=== PATIENT | female | born 1955 | race Caucasian/White ===

== ENCOUNTER 2016-09-19 10:41 | Emergency (ER) | payer BC ==
[~2016-09-19] VITALS: Ht 157.4 cm; Wt 54.4 kg
[~2016-09-19 10:41] MED LIST: ACTIGALL300 MG PO; DEXILANT30 MG PO; FLUOXETINE HYDR20 M1 PO; HYDROCODONE BIT1 T11 PO; LIBRIUM5 MG PO; NAPROSYN500 MG PO; NATURE'S BLEND F1 MG PO; NORVASC10 MG PO; NORVASC2.5 MG PO; Oxycodone/Apap1 TA1 PO; PLAQUENIL200 MG PO; SUBOXONE 12 MG1 EACH SL; THERA TABS1 TAB PO; TRAMADOL HCL50 MG PO; VICODIN ES 7501 TAB PO; VISTARIL25 MG PO; VITAMIN B-11 TAB PO; XANAX0.25 MG PO; ZANTAC 300300 MG PO
[2016-09-19] MEDS ORDERED: ZOLOFT25 MG PO (10:47)
== END 2016-09-19 12:09 | disposition home or self-care (01) ==
LOC: ED 10:41
DX: M19.90 Unspecified osteoarthritis, unspecified site (principal); M54.12 Radiculopathy, cervical region; F17.200 Nicotine dependence, unspecified, uncomplicated; Z79.899 Other long term (current) drug therapy

== ENCOUNTER 2017-05-07 22:17 | Inpatient (IN) | payer BC ==
[~2017-05-07] VITALS: Ht 157.5 cm; Wt 54.6 kg
--- NOTE | ~2017-05-07 | PR ---
[place], [place] PROGRESS NOTE NAME: LAUREN COLLIER UNIT #: [id number] ROOM: [facility] DOCTOR: BREE OVALLE MD,MEGHANA BIRTHDATE: [birth year] DOS: 05/10/2017 SUBJECTIVE: The patient was noted comfortable at this time, sitting on the bed. Denies any symptoms of shortness of breath. The patient has no symptoms of coughing or sputum expectoration or any chest pain. OBJECTIVE: VITAL SIGNS: For the patient shows normal temperature, respirations 16, heart rate 85, blood pressure 91/53. Pulse oxygen saturation was noted on 3 liters oxygen of 92% saturation. HEENT: Examination shows no new change. NECK: Supple. CARDIOVASCULAR: S1, S2 is audible. LUNGS: Basilar crackles were noted with decreased breath sounds. ABDOMEN: Soft, nontender. EXTREMITIES: Without any acute edema. LABORATORY DATA: CMP today, normal BUN and creatinine. CBC today, hemoglobin 10.0. Normal WBC count. The platelet count were normal as well. IMPRESSION: Stable respiratory status was noted at this time with improving acute respiratory failure progressively. Use of BiPAP was noted quite limited for the patient in the last 24 hours. PLAN OF MANAGEMENT: Titrate oxygen supplementation for this patient to maintain saturation of oxygen 92% greater. Discontinue the BiPAP because of limited use at this time and overall improvement in the respiratory status. Continue to maximize the cardiac management. MEGHANA GIRON MD CM:PNTRANS [id number] MEGHANA OVALLE MD 05/11/17 0316 interface
--- NOTE | ~2017-05-07 | CON ---
[place], [place] REPORT OF CONSULTATION NAME: LAUREN COLLIER UNIT #: [id number] ROOM: [place] [address] DOCTOR: MEGHANA FISCHER MD BIRTHDATE: [birth year] DOS: 05/08/2017 REASON FOR CONSULTATION: Assess the patient's current acute respiratory failure, possibly to aspiration pneumonia. HISTORY OF PRESENT ILLNESS: A 61-year-old white female patient with dependence on alcohol and narcotics medication. The patient has been admitted to the hospital under the care of hospitalist service on 05/08/2017, this morning. The patient arrived in the Emergency Room last night at 23:10. She has reported having symptoms of increased shortness of breath, heart racing, palpitation, general weakness and fatigue. The patient thought that she has a panic attack. She had been known with history of alcohol dependence and drank about a bottle of vodka. The patient reported symptoms of nonspecific chest pain as well. Denies symptoms of hemoptysis. She had reported recent symptoms of cough and sputum expectoration, also experiencing chills without any fever at home and shakes. She denies symptoms of any chest trauma. REVIEW OF SYSTEMS: CONSTITUTIONAL: Fatigue and tiredness reported. Denies symptoms of fever or chills. EYES: Denies any burning, redness, or tenderness. EARS, NOSE, THROAT SYMPTOMS: Denies sore throat, hoarseness, otalgia, postnasal drainage or epistaxis. CARDIOVASCULAR SYSTEM: Denies anginal pain, edema or pain of the lower extremities. GASTROINTESTINAL: Denies dysphagia, nausea, vomiting, diarrhea, abdominal pain, hematemesis, melena, hematochezia or with recent symptoms of dysphagia or choking on the foods. PAST MEDICAL HISTORY: 1. She has been known with past history of primary biliary cirrhosis reported in the history. 2. History of lupus is also reported by the patient, but all the medical condition, which has been asked for the patient, she was noted a very poor historian. However, the patient stated that she has been treated previously with the Plaquenil. PAST SURGICAL HISTORY: Reported by the patient as decompression of the median nerve. SOCIAL HISTORY: The patient stated that she is , has 2 children, lives at home. History of alcohol dependence noted with chronic alcohol use. She was also noted to have tobacco use. The patient is smoking 1-2 pack of cigarettes per day actively since teenager. There is no history of illicit drug use reported by the patient. FAMILY HISTORY: Reported for hypertension in mother. HOME MEDICATIONS: Noted the use of Norvasc, Suboxone, Dexilant, fluconazole, Prozac, Movantik, naproxen, Zoloft, Carafate and ursodiol. [place], [place] REPORT OF CONSULTATION NAME: LAUREN COLLIER UNIT #: [id number] ROOM: [place] [address] DOCTOR: BREE OVALLE MD,MEGHANA BIRTHDATE: [birth year] DRUG HISTORY: No known drug allergies reported by the patient. PHYSICAL EXAMINATION: GENERAL: A 61-year-old white female currently noted awake and alert at this time without any acute distress, on oxygen supplement nasal cannula, was noted respiratory distress previously requiring use of the BiPAP earlier during admission in the Intensive Care Unit and in the Emergency Room. The height of the patient noted 5 feet 2 inches, weight of 120 pounds, BMI 22. VITAL SIGNS: Temperature 99.4 degrees Fahrenheit 99.8 degrees Fahrenheit. Respiratory rate recorded between 20-27, heart rate of 119-125, sinus tachycardia, blood pressure 140/66-129/82. Pulse oxygen saturation on 3 L is 96% saturation and previously on 4 L was 84% saturation prior to initiation of the BiPAP. HEENT: Atraumatic. Eyes nonicterus. NECK: Supple. Oral mucosa moist. CARDIOVASCULAR: S1, S2 audible. LUNGS: The patient was noted with decreased breath sounds in the lower portion of the lungs bilaterally with occasional faint crackles. There were no wheezing heard. ABDOMEN: Soft, bowel sounds present without any tenderness. EXTREMITIES: Without any evidence of edema, clubbing, cyanosis. VISIBLE SKIN: No lesions or rashes. CENTRAL NERVOUS SYSTEM: Cranial nerves 2-12 intact. MUSCULOSKELETAL SYMPTOMS: Without any acute major deformities. LABORATORY DATA: CBC that was done on 05/08/2017 for the patient this morning, hemoglobin 10.9, hematocrit 33.2, platelet count of 40,000. The CMP of this morning, the patient's glucose 125, BUN 8, creatinine was normal. AST was noted only 58, minimally elevated. Remaining LFTs were normal. Lactic acid in the Emergency Room 1.9 on admission. CBC on 05/07/2017, mild anemia, otherwise normal with hemoglobin 11. Urine drug screen noted negative for any illicit drugs. PT/PTT were noted as normal. The CMP of 05/07/2017, normal BUN and creatinine, AST minimally elevated at 161, alkaline are minimally elevated at 131. Influenza A and B nasal washing antigens were negative. Arterial blood gas for the patient at 3:37 a.m. on 40% oxygen BiPAP, pH of 7.41, pCO2 35, pO2 84 at that time. The troponin for patient first set and second set so far noted as normal. The chest x-ray that was done one view in the emergency was reviewed. It does not show any acute abnormalities. CT of the chest done in the Emergency Room does not show evidence of pulmonary embolism in the major pulmonary arterial branches. The CT of the chest was also personally reviewed shows a small bilateral pleural fluid was noted with area of either infiltration or compression or atelectasis of the lower lungs. A soft small circumferential pericardial effusion was also seen. FINAL IMPRESSION: 1. The patient will be currently admitted to the hospital noted severe acute hypoxic respiratory failure, bilateral pleural fluid, possibility of cardiac etiology would be considered, rule out aspiration pneumonia in the lower lung, bilateral compression atelectasis. [place], [place] REPORT OF CONSULTATION NAME: LAUREN COLLIER UNIT #: [id number] ROOM: [place] [address] DOCTOR: BREE OVALLE MD,MEGHANA BIRTHDATE: [birth year] 2. Mucus impaction. 3. History of chronic nicotine abuse with consideration for underlying chronic obstructive pulmonary disease as well. 4. Autoimmune disorder, primary biliary cirrhosis and/or lupus, at this time required further clarification with the medical records obtained for the treating doctor. 5. History of chronic nicotine dependence as well. 6. History of chronic alcohol dependence. Close monitoring to be done for any alcohol withdrawal. PLAN OF TREATMENT: At this time, the patient has been getting the antibiotics, broad-spectrum as Levaquin, vancomycin and IV Zosyn. The patient does not have signs of any acute severe sepsis at this time. The Zosyn and the vancomycin will be discontinued. The patient will be continued on Levaquin, the patient's primary antibiotic. Also, there is some fluid described in the GI tract may be causing dysphagia for this patient required further assessment, possibly with endoscopy. Further workup for the GI problem, primary biliary cirrhosis and others to be done. Other supportive plan of management with additional treatment changes to be done based on progression of the illness. Pleural fluid was noted very small at this time and not noted amenable for thoracentesis. Other supportive therapy, plan of management and care plan. Usual care. Titrate oxygen supplementation to maintain an oxygen saturation of 92% or greater. Obtain the sputum for Gram stain and culture as well. Order the sputum for Gram stain and culture as the patient is able to expectorate sputum, will be sent. The echocardiogram noted in progress, which would be assessed once available. Additional treatment changes will be recommended based on progression of the illness. Usual care, other supportive plan of management and therapies. Nicotine replacement patches ordered to overcome any nicotine withdrawal with history of chronic nicotine dependence. Follow up chest x-ray will be done for the patient in the next couple of days to assess the progression of the pleural fluid. Ultrasound of the chest could be performed. Bronchodilators have been ordered q.i.d. for the patient to help continue to mobilize the secretions. MEGHANA GIRON MD CM:CONSTR:REPORT OF CONSULTATION 1336 05/09/17 0048 interface
--- NOTE | ~2017-05-07 | CON ---
[place], [place] REPORT OF CONSULTATION NAME: LAUREN COLLIER UNIT #: [id number] ROOM: [place] [address] DOCTOR: ОЛЬГА LILLY MD BIRTHDATE: [birth year] DOS: 05/08/2017 REASON FOR CONSULTATION: Congestive heart failure. HISTORY OF PRESENT ILLNESS: The patient is a 61-year-old woman who was seen at her bedside in the intensive care unit with her and daughter in attendance. She has a history of chronic alcohol use and apparently does drink very heavily. In addition, she does have chronic back pain and was addicted to narcotic pain medications. She is currently on Suboxone to help withdrawal from her pain medications. She presented to the hospital on this occasion because of worsening dyspnea, shaking and "panic attacks." She admits to productive cough with thick yellow sputum. Family notes that she has been falling asleep at inopportune times and has been much more shaky and confused lately. At her primary physician's office, she was noted to be hypoxemic and therefore was hospitalized. In the hospital, a CAT scan of the chest showed bibasilar airspace disease suggesting infectious pneumonia or aspiration pneumonia. She had small bilateral pleural effusions. Chest x-ray did show vascular congestion and cardiomegaly and therefore, an echocardiogram was done. This showed a large anteroseptal and apical myocardial infarction with an ejection fraction about 15%. Cardiology was therefore asked to see her. PAST MEDICAL HISTORY: Includes 1. Alcohol dependence. 2. Cigarette abuse. 3. Anxiety. 4. Cervical radiculopathy. 5. Gastroesophageal reflux disease. 6. History of hepatitis C. The patient's states that she was treated medically and has been free of the disease for several years. 7. Opiate dependence. The patient is currently on Suboxone. 8. Primary biliary cirrhosis. 9. Connective tissue disease with possible rheumatoid arthritis or systemic lupus erythematosus. MEDICATIONS: Prior to admission included amlodipine 10 mg daily, Dexilant 60 mg daily, fluconazole 200 mg p.o. daily, fluoxetine 40 mg p.o. daily, Movantik 25 mg p.o. daily, naproxen 500 mg p.o. b.i.d., sertraline 25 mg daily, sucralfate 1 g q.i.d., ursodiol 300 mg t.i.d. and Suboxone b.i.d. ALLERGIES: The patient has no known drug allergies. FAMILY HISTORY: Her mother had hypertension. There is no family history of early coronary disease. REVIEW OF SYSTEMS: The patient denies diplopia. She is very fatigued and dyspneic constantly and this has gotten worse lately. She does note that she falls asleep easily at inopportune times. She denies focal weakness. She does have abdominal pain and has had nausea and vomiting. She has had diarrhea. She [place], [place] REPORT OF CONSULTATION NAME: LAUREN COLLIER UNIT #: [id number] ROOM: [place] [address] DOCTOR: ОЛЬГА LILLY MD BIRTHDATE: [birth year] does have occasional dysuria. She denies polydipsia or heat intolerance. Remainder of the review of systems is negative except as noted above. SOCIAL HISTORY: The patient is and lives with her . She does consume large quantities of wine and vodka daily. She also does smoke a pack of cigarettes a day. PHYSICAL EXAMINATION: GENERAL: Reveals a chronically ill-appearing woman who is awake and alert, but falls asleep easily. VITAL SIGNS: Pulse is 100 and regular, blood pressure is 121/71. She has temperature 99.4. She weighs 54.6 kg and has a body mass index of 22. HEENT: Normocephalic and atraumatic. Extraocular muscles are intact. Sclerae are clear. Her oral mucosa is moist. Tongue is midline. NECK: Supple. She does have jugular venous distention when sitting in a 45 degree angle. Carotids are full. There are no bruits. LUNGS: Respirations are slightly labored at rest. She does have bibasilar rales. She has no presacral edema. CARDIOVASCULAR: Her heart has a regular rhythm. She has a loud fourth heart sound and a loud third heart sounds with a summation gallop. She has a grade 2/6 holosystolic murmur at the apex. No diastolic murmurs are present. The PMI is displaced into the anterior axillary line. There is no precordial thrill. ABDOMEN: Soft and normally active. EXTREMITIES: Showed no significant edema. Peripheral pulses are easily palpated in the feet. Her electrocardiogram shows sinus rhythm and left bundle branch block. LABORATORY DATA: Chest x-ray shows pulmonary vascular congestion and cardiomegaly. Echocardiogram shows a large anteroseptal and apical scar with an ejection fraction of about 15%. This is associated with moderate to severe mitral insufficiency and moderate to severe tricuspid insufficiency. She does have Doppler evidence for pulmonary hypertension with right ventricular systolic pressures about 55-60 mmHg. IMPRESSIONS: 1. Ischemic cardiomyopathy. 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 Ejection fraction is severely impaired. She does have associated severe mitral insufficiency, which is probably functional in origin along with pulmonary hypertension and severe tricuspid insufficiency. 2. Long-term and chronic alcohol abuse. 3. Long-term and chronic cigarette abuse. 4. Possible connective tissue disease. 5. Narcotic dependence, on Suboxone. 6. Chronic left bundle branch block. PLAN: The patient's prognosis, if she does not reverse, these problems are [place], [place] REPORT OF CONSULTATION NAME: LAUREN COLLIER UNIT #: [id number] ROOM: [place] [address] DOCTOR: ОЛЬГА LILLY MD BIRTHDATE: [birth year] extremely poor. For now, we will start by stopping calcium channel blockers and starting her on carvedilol. We will also start lisinopril as tolerated by blood pressure. I would like to change her from a straight RITCHIE inhibitor to Entresto in the near future, but for now we will start with just lisinopril. We will use diuretics if needed for fluid retention. Once she is more stable from the point of view of her alcohol withdrawal, I will plan on a pharmacologic stress test and probable subsequent catheterization to determine if she has any reversible process that may improve with revascularization. Further recommendations will depend upon her progress in the hospital. I did impress upon the patient and her family that she must stop smoking and consuming alcohol immediately and that without big changes in her habits, she will probably within the next 6 months based on her poor LV function. I thank the hospitalist physicians for asking our advice regarding her care. ОЛЬГА LILLY MD CM:CONSTR:REPORT OF CONSULTATION 09 05/08/17 2111 interface
--- NOTE | ~2017-05-07 | PR ---
[place], [place] PROGRESS NOTE NAME: LAUREN COLLIER UNIT #: [id number] ROOM: [facility] DOCTOR: BREE OVALLE MD,MEGHANA BIRTHDATE: [birth year] DOS: 05/09/2017 SUBJECTIVE: The patient was noted comfortable at this time, noted much more improvement in the overall respiratory status. She was noted fully awake and alert without any acute distress. She has been sitting on the bed at this time with her daughter and other family members of the patient also accompanying the patient. She has not been noted with any symptoms of chest pain. Denies symptoms of hemoptysis. The patient denies symptoms of abdominal pain. She denies any symptoms of headache, or diplopia. Remaining systems were reviewed. They were noted all negative. OBJECTIVE: VITAL SIGNS: Low grade fever of 99.8 degree Fahrenheit noted previously resolved. Respiration 18-20, heart rate of 93. The tachycardia was improved for the patient as well. Blood pressure ranges for this patient from 100/54-118/52. The heart rate was 96-84. Pulse oxygen saturation noted on 3 liter nasal cannula to 4 liter nasal cannula 98% saturation. HEENT: Examination shows head was atraumatic. Eyes nonicterus. NECK: Supple. CARDIOVASCULAR: S1, S2 audible. LUNGS: Decreased breath sounds still noted in the lower portion of the lungs. There were no crackles or wheezing. ABDOMEN: Soft, nontender. EXTREMITIES: Without any acute edema. LABORATORY DATA: CMP of the patient that was done on 05/09/2017 showed normal BUN and creatinine. Potassium 3.1. CBC this morning, WBC count 10.2, hemoglobin 32.1, platelet count 124,000. Urine culture with gram-negative bacilli growth, 75,000 colony forming units, pending culture results. Echocardiogram of the patient that was done yesterday show small circumferential pericardial effusion without evidence of tamponade. Other findings dictated by Dr. Gonsales for the patient described as evidence of moderate tricuspid regurgitation and [id number] pulmonary hypertension was also suggested. Left ventricle ejection fraction was also noted severely decreased as well. IMPRESSION: 1. The patient is currently noted with acute severe hypoxic respiratory failure as well with congestive heart failure with biventricular failure. Pulmonary hypertension maybe related to primary cardiac problem would be considered. Questionable aspiration pneumonia as well. 2. Possibly urinary tract infection, colonization of the urinary bladder. 3. History of autoimmune disease. 4. Other medical problems as listed previously. 5. Hypokalemia. PLAN OF MANAGEMENT: Supplementation of electrolytes. Titrate oxygen supplementation gradually to maintain oxygen saturation 90% or greater. Optimize the cardiac management for this patient as well. Antibiotics for the patient, Levaquin would be the only antibiotic continued. No additional [place], [place] PROGRESS NOTE NAME: LAUREN COLLIER UNIT #: [id number] ROOM: [facility] DOCTOR: BREE OVALLE MD,MEGHANA BIRTHDATE: [birth year] antibiotic would be necessary. Monitor pleural fluid for the patient radiologically and clinically as well. Supportive therapy, plan of management. If the pleural fluid enlarges, certainly consider thoracentesis at that time. MEGHANA GIRON MD CM:PNTRANS [id number] MEGHANA OVALLE MD 05/10/17 0421 interface
--- NOTE | ~2017-05-07 | EKG ---
[place], [place] ELECTROCARDIOGRAM REPORT NAME: LAUREN COLLIER UNIT #: [id number] ROOM: [place] [address] DOCTOR: BREE OVALLE MD,MEGHANA BIRTHDATE: [birth year] DOS: 05/08/2017 The electrocardiogram was done on 05/08/2017. The electrocardiogram shows evidence of left bundle branch block for this patient with normal sinus rhythm. Heart rate of 99 beats per minute. MEGHANA GIRON MD CM:EKGRPT:ELECTROCARDIOGRAM REPORT [id number] MEGHANA OVALLE MD
--- NOTE | ~2017-05-07 | PR ---
[place], [place] PROGRESS NOTE NAME: LAUREN COLLIER UNIT #: [id number] ROOM: [place] [address] DOCTOR: ОЛЬГА LILLY MD BIRTHDATE: [birth year] DOS: 05/09/2017 SUBJECTIVE: The patient was seen at her bedside in the intensive care unit today 05/09/2017 with family in attendance for followup of left ventricular dysfunction and an apparent ischemic cardiomyopathy. She presented to the hospital on 05/07/2017 with worsening dyspnea, shaking and "panic attacks." She admitted to a productive cough with thick yellow sputum. The family noted that she had been falling asleep at inopportune times and was shaky and confused. It was also noted that she does consume alcohol heavily and does smoke. In the hospital, a CAT scan of the chest showed bibasilar airspace disease, suggesting pneumonia or aspiration pneumonia. A chest x-ray showed vascular congestion and cardiomegaly; therefore, an echocardiogram was done, which showed a large anteroseptal and apical myocardial infarction with an estimated ejection fraction of 15%. Overnight, she has been started on low dose beta justino and RITCHIE inhibitor therapy. Her blood pressure has been marginal, but she has actually improved. Her heart rate has dropped into the low 90s. She is breathing more easily and is much more alert. Of course, some of this is due to the fact that she is being treated appropriately for alcohol withdrawal in addition to her other medical management. PHYSICAL EXAMINATION: VITAL SIGNS: Today, her pulse is 91 and regular, blood pressure is 100/56. She is afebrile. NECK: Supple. She does have jugular distention with hepatojugular reflux. Carotids are full without bruits. LUNGS: Respirations are unlabored. She has decreased breath sounds at the bases, but no wheezes or rales. HEART: Has a regular rhythm. She has a loud S3 and a loud S4 along with a grade 2/6 holosystolic murmur at the apex. There were no diastolic murmurs. ABDOMEN: Soft and normally active. EXTREMITIES: Showed no edema. Peripheral pulses are easily palpated bilaterally. IMPRESSION: 1. Ischemic cardiomyopathy. 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 Ejection fraction is severely impaired. This is associated with severe mitral insufficiency, which most likely is functional in origin along with pulmonary hypertension and severe tricuspid insufficiency. 2. Long-term alcohol abuse. 3. Long-term cigarette abuse. 4. Possible connective tissue disease by history. 5. Narcotic dependence, on Suboxone. 6. Chronic left bundle branch block. PLAN: I did spend quite a bit of time today discussing the patient's situation and prognosis with family members as well as with the patient. She is much more alert and much more able to comprehend what I was discussing with her today. [place], [place] PROGRESS NOTE NAME: LAUREN COLLIER UNIT #: [id number] ROOM: [place] [address] DOCTOR: VIJAYA BAKER,ОЛЬГА BIRTHDATE: [birth year] For now, we will stabilize her medically. We will then proceed with an imaging study to determine how much myocardium is at risk, but probably will subsequently proceed with catheterization. Certainly, we have to make sure that she is as healthy as possible prior to any invasive evaluation and management of possible pneumonia, etc. will be a big part of that. We will continue to follow her with her other physicians and I thank the hospitalist physicians for asking our advice regarding her care. ОЛЬГА LILLY MD CM:PNTRANS [id number] ОЛЬГА LILLY MD 05/09/17 175 interface
[~2017-05-07 22:17] MED LIST changes: +ZOLOFT25 MG PO
[2017-05-07 22:19] VITALS: BP 140/66
[2017-05-07 23:26] LABS: BASO % 0.4 % (0.0-1.0); EOS # 0.1 10*3/uL (0.0-0.4); EOS % 1.6 % (1.0-4.0); HEMATOCRIT 33.3 % (37.0-47.0); HEMOGLOBIN 11.2 g/dl (12.0-16.0); LYMPH # 1.4 10*3/uL (1.3-4.4); LYMPH % 20.4 % (27.0-41.0); MEAN CELL VOLUME 98.5 fl (81.0-99.0); MEAN CORPUSCULAR HGB 33.1 pg (27.0-31.0); MEAN CORPUSCULAR HGB CONC 33.6 g/dl (33.0-37.0); MEAN PLATELET VOLUME 10.4 fl (9.6-12.3); MONO # 0.7 10*3/uL (0.1-1.0); MONO % 9.5 % (3.0-9.0); NEUT # 4.6 10*3/uL (2.3-7.9); NEUT % 67.8 % (47.0-73.0); PLATELET COUNT AUTOMATED 142 10*3/uL (130-400); RED BLOOD COUNT 3.38 10*6/uL (4.10-5.10); RED CELL DISTRI WIDTH 14.8 % (0-14.5); WHITE BLOOD COUNT 6.8 10*3/uL (4.8-10.8)
[2017-05-07 23:34] LABS: URINE AMPHETAMINES < 1000 (1000ng/ml); URINE BARBITURATES < 200 (200ng/ml); URINE BENZODIAZEPINES < 200 (200ng/ml); URINE CANNABINOIDS (THC) < 50 (50ng/ml); URINE COCAINE < 300 (300ng/ml); URINE METHADONE < 300 (300ng/ml); URINE OPIATES < 300 (300ng/ml)
[2017-05-07 23:35] LABS: INTERNATIONAL NORM RATIO 0.9 (2.0-3.5)
[2017-05-07 23:37] LABS: URINE PHENCYCLIDINE < 25 (25ng/ml)
[2017-05-08] VITALS (8 sets, daily range): BP systolic 118–134; BP diastolic 61–82
[2017-05-08 00:26] LABS: ALBUMIN 3.9 gm/dl (3.1-4.5); ALKALINE PHOSPHATASE 132 U/L (45-117); BUN 11 mg/dl (7-24); CHLORIDE 105 mmol/L (98-107); CREATININE 0.47 mg/dL (0.55-1.02); POTASSIUM 4.2 mmol/L (3.5-5.1); SGOT/AST 61 IU/L (3-35); SGPT/ALT 53 U/L (12-78); SODIUM 140 mmol/L (136-145); TOTAL PROTEIN 7.4 gm/dL (6.4-8.2)
[2017-05-08 00:27] LABS: TROPONIN I 0.025 ng/ml (<0.045)
[2017-05-08 03:21] LABS: ABG BASE EXCESS -1.4 mmol/L (-2.0-2.0); ARTERIAL BLOOD GAS PH 7.418 (7.35-7.45)
[2017-05-08] MEDS ORDERED: PROZAC40 M1 PO (03:39)
[2017-05-08] MEDS ORDERED: FLUONAZOLE200 M1 PO (03:40)
[2017-05-08] MEDS ORDERED: MOVANTIK25 MG PO (03:41)
[2017-05-08] MEDS ORDERED: CARAFATE1 GM/10 ML PO (03:41)
[2017-05-08] MEDS ORDERED: SUBOXONE 8 MG-1 EACH SL (03:42)
[2017-05-08] MEDS ORDERED: URSODIOL300 M1 PO (03:43)
[2017-05-08 04:17] LABS: BILIRUBIN NEGATIVE (NEGATIVE); BLOOD NEGATIVE (NEGATIVE); CLARITY CLEAR (CLEAR); COLOR YELLOW (YELLOW); GLUCOSE NEGATIVE (NEGATIVE); KETONE NEGATIVE (NEGATIVE); LEUKO ESTERASE NEGATIVE (NEGATIVE); NITRITE POSITIVE (NEGATIVE); SPECIFIC GRAVITY <= 1.005 (1.005-1.030); UROBILINOGEN 0.2 E.U./dl (0.2-1.0)
[2017-05-08 04:37] LABS: BACTERIA 2+
[2017-05-08 06:17] LABS: BASO % 0.4 % (0.0-1.0); EOS # 0.1 10*3/uL (0.0-0.4); EOS % 1.5 % (1.0-4.0); HEMATOCRIT 33.2 % (37.0-47.0); HEMOGLOBIN 10.9 g/dl (12.0-16.0); LYMPH # 1.7 10*3/uL (1.3-4.4); MEAN CORPUSCULAR HGB 32.8 pg (27.0-31.0); MEAN CORPUSCULAR HGB CONC 32.8 g/dl (33.0-37.0); MEAN PLATELET VOLUME 9.9 fl (9.6-12.3); MONO # 0.8 10*3/uL (0.1-1.0); MONO % 9.6 % (3.0-9.0); NEUT # 5.4 10*3/uL (2.3-7.9); NEUT % 67.3 % (47.0-73.0); PLATELET COUNT AUTOMATED 140 10*3/uL (130-400); RED BLOOD COUNT 3.32 10*6/uL (4.10-5.10); WHITE BLOOD COUNT 8.1 10*3/uL (4.8-10.8)
[2017-05-08 06:39] LABS: ALBUMIN 3.9 gm/dl (3.1-4.5); ALKALINE PHOSPHATASE 114 U/L (45-117); BUN 8 mg/dl (7-24); CHLORIDE 103 mmol/L (98-107); CREATININE 0.46 mg/dL (0.55-1.02); PHOSPHOROUS 3.8 mg/dL (2.5-4.9); POTASSIUM 4.2 mmol/L (3.5-5.1); SGOT/AST 58 IU/L (3-35); SGPT/ALT 51 U/L (12-78); SODIUM 139 mmol/L (136-145); TOTAL PROTEIN 7.3 gm/dL (6.4-8.2); TRIGLYCERIDES 53 mg/dl (<150); VLDL CHOLESTEROL 11 mg/dL (6-40)
[2017-05-08 07:25] LABS: CHOLESTEROL 303 mg/dL (<200)
[2017-05-08 07:36] LABS: HDL CHOLESTEROL 198 mg/dl (40-60); LDL CHOLESTEROL 94 mg/dL (9-159)
[2017-05-08 07:43] LABS: VITAMIN D, 25-HYDROXY 31.6 ng/mL (30-100)
[2017-05-09] VITALS: BP 120/68
[2017-05-09 04:00] VITALS: BP 100/54
[2017-05-09 05:38] LABS: ALBUMIN 3.3 gm/dl (3.1-4.5); ALKALINE PHOSPHATASE 81 U/L (45-117); BUN 6 mg/dl (7-24); CHLORIDE 107 mmol/L (98-107); CREATININE 0.37 mg/dL (0.55-1.02); SGOT/AST 34 IU/L (3-35); SGPT/ALT 38 U/L (12-78); TOTAL PROTEIN 6.3 gm/dL (6.4-8.2)
[2017-05-09 05:44] LABS: SODIUM 143 mmol/L (136-145)
[2017-05-09 05:47] LABS: POTASSIUM 3.1 mmol/L (3.5-5.1)
[2017-05-09 05:48] LABS: BASO % 0.4 % (0.0-1.0); EOS # 0.2 10*3/uL (0.0-0.4); EOS % 4.2 % (1.0-4.0); HEMATOCRIT 32.1 % (37.0-47.0); HEMOGLOBIN 10.2 g/dl (12.0-16.0); LYMPH # 1.5 10*3/uL (1.3-4.4); LYMPH % 28.5 % (27.0-41.0); MEAN CELL VOLUME 101.6 fl (81.0-99.0); MEAN CORPUSCULAR HGB 32.3 pg (27.0-31.0); MEAN CORPUSCULAR HGB CONC 31.8 g/dl (33.0-37.0); MONO # 0.6 10*3/uL (0.1-1.0); MONO % 10.8 % (3.0-9.0); NEUT % 55.9 % (47.0-73.0); PLATELET COUNT AUTOMATED 124 10*3/uL (130-400); RED BLOOD COUNT 3.16 10*6/uL (4.10-5.10); WHITE BLOOD COUNT 5.3 10*3/uL (4.8-10.8)
[2017-05-09 10:41] VITALS: BP 85/45
[2017-05-09 12:00] VITALS: BP 100/56
[2017-05-09 16:00] VITALS: BP 95/57
[2017-05-10] VITALS: BP 122/63
[2017-05-10 04:00] VITALS: BP 108/63
[2017-05-10 05:58] LABS: BASO % 0.3 % (0.0-1.0); EOS # 0.2 10*3/uL (0.0-0.4); HEMATOCRIT 32.2 % (37.0-47.0); HEMOGLOBIN 10.1 g/dl (12.0-16.0); LYMPH # 1.5 10*3/uL (1.3-4.4); LYMPH % 22.5 % (27.0-41.0); MEAN CELL VOLUME 102.9 fl (81.0-99.0); MEAN CORPUSCULAR HGB 32.3 pg (27.0-31.0); MEAN CORPUSCULAR HGB CONC 31.4 g/dl (33.0-37.0); MEAN PLATELET VOLUME 10.8 fl (9.6-12.3); MONO # 0.7 10*3/uL (0.1-1.0); MONO % 10.7 % (3.0-9.0); NEUT # 4.2 10*3/uL (2.3-7.9); NEUT % 63.2 % (47.0-73.0); PLATELET COUNT AUTOMATED 135 10*3/uL (130-400); RED BLOOD COUNT 3.13 10*6/uL (4.10-5.10); WHITE BLOOD COUNT 6.6 10*3/uL (4.8-10.8)
[2017-05-10 06:25] LABS: ALBUMIN 3.1 gm/dl (3.1-4.5); BUN 13 mg/dl (7-24); CHLORIDE 109 mmol/L (98-107); SGOT/AST 38 IU/L (3-35); SGPT/ALT 35 U/L (12-78); SODIUM 142 mmol/L (136-145)
[2017-05-10 06:28] LABS: ALKALINE PHOSPHATASE 101 U/L (45-117); CREATININE 0.61 mg/dL (0.55-1.02); TOTAL PROTEIN 6.2 gm/dL (6.4-8.2)
[2017-05-10 08:00] VITALS: BP 91/53
[2017-05-10 12:00] VITALS: BP 122/64
[2017-05-10] MEDS ORDERED: LISINOPRIL2.5 MG PO (14:03)
[2017-05-10] MEDS ORDERED: CARVEDILOL3.125 MG PO (14:03)
[2017-05-10] MEDS ORDERED: LEVAQUIN750 M1 PO (14:04)
[2017-05-10 16:00] VITALS: BP 132/84
== END 2017-05-10 18:00 | disposition short-term general hospital (02) | DRG 871 ==
LOC: ED 22:17 → EDHOLD 05-08 02:01 → ICCU 05-08 02:01 → 5E 05-08 02:28 → ICCU 05-08 02:34
PROVIDERS: Family Medicine Adult Medicine; Internal Medicine; Physician Assistant
PROC: 5A09357 Assistance with Respiratory Ventilation, Less than 24 Consecutive Hours, Continuous Positive Airway Pressure (ICD-10-PCS; principal; 2017-05-08)
PROC: 5A09357 Assistance with Respiratory Ventilation, Less than 24 Consecutive Hours, Continuous Positive Airway Pressure (ICD-10-PCS; 2017-05-09)
PROC: 5A09357 Assistance with Respiratory Ventilation, Less than 24 Consecutive Hours, Continuous Positive Airway Pressure (ICD-10-PCS; 2017-05-10)
DX: A41.9 Sepsis, unspecified organism (principal); J18.9 Pneumonia, unspecified organism; J96.01 Acute respiratory failure with hypoxia; D69.6 Thrombocytopenia, unspecified; F11.20 Opioid dependence, uncomplicated; M32.9 Systemic lupus erythematosus, unspecified; K74.3 Primary biliary cirrhosis; F11.29 Opioid dependence with unspecified opioid-induced disorder; R65.20 Severe sepsis without septic shock; M06.9 Rheumatoid arthritis, unspecified; D50.9 Iron deficiency anemia, unspecified; R74.0 Nonspecific elevation of levels of transaminase and lactic acid dehydrogenase [LDH]; R03.0 Elevated blood-pressure reading, without diagnosis of hypertension; K21.9 Gastro-esophageal reflux disease without esophagitis; B18.2 Chronic viral hepatitis C; F41.9 Anxiety disorder, unspecified; D53.9 Nutritional anemia, unspecified; F10.229 Alcohol dependence with intoxication, unspecified; I25.5 Ischemic cardiomyopathy; Z71.6 Tobacco abuse counseling

== ENCOUNTER → 2020-11-23 | Outpatient (CLI) | payer MEDICARE ==
[~2020-11-23] MED LIST changes: +CARAFATE1 GM/10 ML PO; +CARVEDILOL3.125 MG PO; +FLUONAZOLE200 M1 PO; +LEVAQUIN750 M1 PO; +LISINOPRIL2.5 MG PO; +MOVANTIK25 MG PO; +PROZAC40 M1 PO; +SUBOXONE 8 MG-1 EACH SL; +URSODIOL300 M1 PO
== END | disposition home or self-care (01) ==
LOC: COVID19 14:56
PROVIDERS: ATTEND Hospitalist
DX: Z11.52 Encounter for screening for COVID-19 (principal)